=== PATIENT | female | born 1980 | race Caucasian/White ===

== ENCOUNTER → 2021-08-06 13:07 | Outpatient (CLI) | payer OTHER, SELFPAY ==
[2021-08-06 15:51] LABS: COVID19 -Nasal RAPID Negative (Negative)
== END ==
PROVIDERS: Visit Provider Nurse Practitioner Family
DX: Z20.822 Contact with and (suspected) exposure to COVID-19 (principal)
CPT/HCPCS: 87635

== ENCOUNTER 2021-08-08 11:41 | Day surgery (SDC) | payer OTHER, SELFPAY ==
[2021-08-01 12:49] VITALS: BMI 51.7
[2021-08-08] VITALS (14 sets, daily range): BP systolic 98–167; BP diastolic 59–98; PULSE 97–118; RESP 10–101; TEMP 36.1–37; O2SAT 93–99; BMI 51.7
--- NOTE | 2021-08-08 | DI.RAD.S_ITS ---
PROCEDURE: XR LUMBAR SPINE 2-3V INDICATIONS: L4-5 TLIF TECHNIQUE: 2 intraoperative fluoroscopic views of the lumbar spine were acquired. COMPARISON: None. FINDINGS: Intraoperative fluoroscopic images of lower lumbar spine shows transpedicular fusion at L4-5 level with intervertebral spacer placement. IMPRESSION: Fluoro guidance was provided intraoperatively for posterior fusion at L4-5 level. Dictated by: Aston Espinal M.D. on 08/08/2021 at 16:53 Approved by: Aston Espinal M.D. on 08/08/2021 at 16:53
[2021-08-08] MEDS: LACTATED RINGERS 1,000 ML 42 ML IV ×2 (12:38→14:40)
--- NOTE | 2021-08-08 13:12 | PM.PREOP ---
Pre-operative Note COVID-19 COVID-19 status: Negative Result date/Date tested (Pos, Neg/Pending): 08/06/21 Interval Note History & Physical reviewed/Exam performed by Physician: Yes Changes to H&P: No
[2021-08-08] MEDS: CEFAZOLIN VIAL 3 GM in SODIUM CHLORIDE 0.9% 100 ML 200 ML IV (13:58)
--- NOTE | 2021-08-08 14:49 | SUR.OPER ---
Prone on spine table, head in foam head support and on top of 6-8 of stacked towels because of patient's large body habitus preventing head from reaching cradle at normal level, padded chest-this ended up being removed from under patient because it was elevating her too high. Padded pelvic supports, gel pad at knees, lower legs supported by pillows; nipples, genitalia and toes free of pressure as much as possible given her body habitus, arms secured on foam padded arm boards at <90 degrees abduction. Tape over blanket at thigh secured to table.
--- NOTE | 2021-08-08 14:59 | SUR.OPER ---
Approximately 30 extra minutes were taken in positioning patient due to large body habitus.
[2021-08-08] MEDS: BUPIVACAINE LIPOSOME 266 MG/20 ML VIAL INJ (15:06)
[2021-08-08] MEDS: BUPIVACAINE 0.25% (PF) VIAL 30 ML INJ (15:08)
--- NOTE | 2021-08-08 17:07 | P.OP_ITS ---
Operative Date/Time/Diagnoses Date of procedure: 08/08/21 Time of procedure: 14:00 Pre-op diagnosis: 1. L4-5 spondylolisthesis 2. L4-5 spinal stenosis with radiculopathy Post-op diagnosis: same Procedure & Clinicians Procedure: 1. L4-5 Postero-lateral and posterior interbody fusion 2. L4-5 interbody cage placement. 3. L4-5 decompressive laminectomy with bilateral facetecomies 4. L4-5 Posterior non-segmental instrumentation 5. [place] of bone marrow from iliac crest 6. Utilization of microsurgical technique and operating microscope Same procedure as scheduled: Yes Indications: Patient has been having chronic back pain and worsening lumbar radiculopathy. Patient failed multiple conservative management with worsening pain weakness and numbness in her lower extremity. Patient has been having difficulty performing activity of daily living. After discussing risks benefits of treatment options, patient elected proceed with surgery. Surgeon: Ale Uribe Environmental Field Professional: Purvi Cooper Click Yes if Unassisted: No Anesthesia Type: General Operative Notes Closure Type: primary Specimen(s): none sent Prosthetic devices, grafts, tissues, transplants, or devices: Globus revolve screws, Rise cage Estimated Blood Loss (mL): 50 Blood products transfused: none Procedure in detail: Patient was seen in the preoperative area. Risks and benefits of the surgery was discussed with the patient. Informed consent was obtained from the patient and placed in the chart. Surgical site was marked. Patient was taken to the operative room. General anesthesia was administered. Prophylactic antibiotic was given to the patient less than 30 min before the incision was made. Patient was placed into a prone position on the Joshua table. Patient's back was then prepped and draped in the sterile fashion. Time- out was performed at this time. Using AP and lateral C-arm imaging the interval between L4-5 was identified and marked on patient's back. Patient has transitional anatomy. In order to keep naming and level of the surgery consistent the level with the clear spondylolisthesis was named L4-5 in order to keep the naming consistent with radiology report. A 2 inch incision 2 in from midline was made on the right side first. The fascia was incised in line with skin incision. Globus MARS retractors was placed inside the incision and docked onto the L4 lamina. Using microsurgical technique and operating microscope, a at L4 laminectomy and L4-5 facetectomy was performed using a Kerrison rongeur. The disc space at L4-5 was identified. And a total diskectomy was performed at L4-5 level. The endplates were decorticated using a rasp and shaver. The total diskectomy and decortication was performed at L4-5 level in order to to accomplish a L4-5 fusion. The local bone from the laminectomy and facetectomy was saved for local bone grafting. After the total diskectomy and decortication was completed, Trifecta bone graft material was combined with local bone that was harvested earlier. At this time, a separate skin is incision was made over the iliac crest. A Jamshidi needle was inserted into the iliac crest through a separate skin incision. 5 cc of bone marrow aspiration was obtained through the separate skin incision using a Jamshidi needle from the iliac crest. The bone marrow aspiration was combined with local bone and the Trifecta bone grafting material. The bone grafting material was placed into the L4-5 interbody space along with a expandable cage. The cage was expanded to its maximum height using the torque limiting screwdriver. At this time a mirror image incision was made on the left side. The fascia was incised in line with the skin incision. Globus MARS retractor was inserted and docked onto the L4-5 posterolateral gutter. Using the power drill, posterior- lateral decortication was performed at L4-5 level until bleeding cortical bone was identified. The remaining bone grafting material was placed into the L4-5 posterior lateral gutter he order to accomplish posterolateral fusion at the L4- 5 level. Using the double C-arm technique, pedicle screws were placed into the L4-5 pedicles bilaterally. This was done by placing the Jamshidi needle into the pedicles, then placing the guidewires over the Jamshidi needle, and finally placing the cannulated screws over the guidewires bilaterally. After the pedicle screws were placed, 2 titanium rods was locked into the heads of the pedicle screws using locking caps and torque limiting screwdriver. Thread reducers was used to reduce the patient's spondylolisthesis and maintaining the reduction which was successfully accomplished. After all the hardware was placed, and confirmed with AP and lateral C-arm imaging, the wound was then irrigated with sterile normal saline and packed with Ray-Kasandra gauze for 3 min to accomplish hemostasis. After the gauze was removed the deep fascia was closed with #1 Vicryl suture. The subcutaneous layer was closed with 2-0 Vicryl. The skin was closed with skin altagracia. Patient tolerated the procedure well. There were no complications. Complications: none Post-operative Condition: stable Disposition: PACU Plan for aftercare: Admit to inpatient hospital
[2021-08-08] MEDS: LORazepam 2 MG/ML INJ 0.5 MG IV (17:10)
[2021-08-08] MEDS: hydrOXYzine 50 MG/ML INJ IM (17:36)
[2021-08-08] MEDS: OXYCODONE IR 5 MG TABLET 10 MG PO (17:38)
--- NOTE | 2021-08-08 17:53 | SUR.PHASEI ---
Addendum entered by Mis Garcia R.N. 08/08/21 18:41: 1820 - Patient appears much more comfortable at rest; intermittantly resting with eyes closed, and even, unlabored breathing. Wakes up periodically and complains of pain, but easily falls back asleep. Report given to receiving Acute Care RN Dona. Patient transferred to room 223 in bed with all belongings in stable condition. Receiving RN at bedside to receive patient. Original Note: Patient arrived to PACU thrashing in bed and ripping everything off of her. Kept attempting to get up and hit at staff. Dr. Reeves at bedside as well as multiple other staff members. Received verbal order for ativan which was given immediately. Patient continued to thrash around in bed and refuse care almost losing IV site. Dr. Reeves administered propofol and versed in PACU (see anesthesia record) and patient placed on nonrebreather. Patient calmed and later awakened a bit calmer. Continued to have moments of yelling and thrashing, but became more easily directable. Patient medicated per orders and falls asleep periodically. Appears to be more comfortable than previously and is maintaining oxygen saturation on room air.
[2021-08-08] MEDS: SODIUM CHLORIDE 0.9% 1,000 ML 100 ML IV (18:45)
[2021-08-08] MEDS: HYDROMORPHONE 0.5 MG INJ IV ×2 (18:51→20:51)
[2021-08-08] MEDS: CEFAZOLIN 1 GM VIAL 2 GM IV (19:43)
[2021-08-08] MEDS: diazePAM 5 MG TABLET PO (19:44)
[2021-08-08] MEDS: HYDROCODONE/ACET 10/325 TABLET 1 TAB PO (19:44)
[2021-08-08] MEDS: lisinopriL 10 MG TABLET PO (21:30)
[2021-08-08] MEDS: DOCUSATE 100 MG CAPSULE PO (21:30)
[2021-08-08] MEDS: OXYCODONE ER 10 MG TAB PO (21:30)
[2021-08-08] MEDS: SENNOSIDES 8.6 MG TABLET 17.2 MG PO (21:30)
[2021-08-08] MEDS: TIZANIDINE 4 MG TABLET 8 MG PO (21:31)
--- NOTE | 2021-08-08 22:51 | PC.NURSE ---
pt arrived in room anxious, moaning, screaming, moving around in bed. she said oxycodone does not work for her. notified provider. VTO for norco and valium. provider would like to keep the oxycontin, dc oxycodone. amlodipine dc'd pt does not take it anymore. resume BP meds per provider, gave lisinopril as she takes it at night.
[2021-08-09] VITALS: BP 107/55; PULSE 99; RESP 21; TEMP 36.1; O2SAT 93
[2021-08-09] MEDS: HYDROCODONE/ACET 10/325 TABLET 1 TAB PO ×4 (00:19→10:51)
[2021-08-09] MEDS: hydrOXYzine pamoate 25 MG CAPSULE PO ×2 (00:20→06:09)
[2021-08-09] MEDS: HYDROMORPHONE 0.5 MG INJ IV ×3 (01:29→06:21)
[2021-08-09] MEDS: CEFAZOLIN 1 GM VIAL 2 GM IV (03:29)
[2021-08-09 04:00] VITALS: BP 130/53; PULSE 102; RESP 20; TEMP 36.6; O2SAT 98
[2021-08-09] MEDS: HYDROMORPHONE 2 MG TABLET PO ×3 (07:25→12:38)
[2021-08-09 07:40] VITALS: BP 107/67; PULSE 109; RESP 24; TEMP 35.9; O2SAT 99
--- NOTE | 2021-08-09 09:05 | PT.IIE ---
Current Diagnoses Spondylolisthesis, lumbar region (08/08/21) Spinal stenosis, lumbar region without neurogenic claudication (08/08/21) Surgery Performed Operation Date: 08/08/21 13:15 Actual Procedures p L4-5 TLIF - Ale Uribe MD Medical History (Last Reviewed 08/09/21 @ 10:52 by Purvi Cooper PA-C) Anxiety Arthritis Gluten intolerance Heartburn HTN (hypertension) Hypothyroid Migraines Sciatica Physical Therapy Inpatient Evaluation/Re-Eval M1 PT/OT-IP Prior Functional Status Start: 08/09/21 11:47 Freq: NEEDED Status: Active Protocol: Document 08/09/21 09:05 AB (Rec: 08/09/21 12:00 AB [email or web address]) Medical Review Prior Functional Status Medical History Reviewed Yes Communication able to make needs known Mobility and Gait pt stated that she is independent with all mobilities and ambulation wtihout AD Social History Household Members spouse,children Living Arrangements House Number of Floors (Floors) Two Floors Number of Stairs To Enter/Railing? 1 step to enter to bedroom level: 7+landing+7 steps R rail ascending Home Environment Standard Height Toilet,Tub/ Shower Home Equipment Hand Held Shower,Grab Bars Near Toilet,Grab Bars In Shower M2 PT-IP Current Condition Start: 08/09/21 11:47 Freq: NEEDED Status: Active Protocol: Document 08/09/21 09:05 AB (Rec: 08/09/21 12:00 AB [email or web address]) Physical Therapy Current Condition Current Condition Evaluation Date 08/09/21 Treatment Diagnosis s/p L4-5 fusion/lami; difficulty in walking Onset Date 08/08/21 Precautions Lumbar Precautions Log Roll,No Twisting,Limit Bending,Lifting Restriction of 10 lbs,Gait Belt above Incisional Area M3 PT-IP Subjective Start: 08/09/21 11:47 Freq: NEEDED Status: Active Protocol: Document 08/09/21 09:05 AB (Rec: 08/09/21 12:00 AB [email or web address]) Subjective Physical Therapy Visit Type Type Initial Evaluation Visit Start Time 09:05 Visit Stop Time 09:40 Total Visit Minutes 35 Number of MEDICAL ASSISTING INSTRUCTOR Visits 0 Physical Therapy Visit Comments Patient Comments requested to use the toilet, put her clothes on; pt is very anxious Therapy Pain Assessment Pain When Pain Assessed At Rest Pain Present Pain Present Pain Reported Location back Intensity 10 Scale Used Numeric (0 - 10) Pain Behaviors Calling Out,Facial Grimacing, Guarding,Holding Area,Moaning, Restlessness,Wincing Pain Management Techniques Distraction,Modification of Treatment,Re-positioning, Timing of Activity with Medications M4 PT-IP Mobility and Gait Start: 08/09/21 11:47 Freq: NEEDED Status: Active Protocol: Document 08/09/21 09:05 AB (Rec: 08/09/21 12:00 AB [id number]) PT-Bed Mobility Assessment Supine to Sit Supine to Sit Moderate Assistance,Maximum Assistance,1 Person Assistance PT-Transfer Assessment Sit to and From Stand Sit to and from Stand Moderate Assistance,Maximum Assistance,1 Person Assistance ,Use of Upper Extremities Equipment Transfer Assistive Device Gait Belt,Front Wheeled Walker Orthotic/Prosthetic Devices or Brace: No Transfers Transfer Destination Toilet Transfer Technique ambulated using FWW Transfer Ability Level of Assist Moderate Assistance,1 Person Assistance,Use of Upper Extremities Comments Mobility Comments educated pt on back precautions and log roll bed mobility. pt is very anxious and needs reassurance. completed log roll supine to sit max A and max cues. pt was able to sit on EOB SBA. completed sit to stand mod to max A and max cues and ambulated ~ 10 ft to the toilet using FWW mod A and cues. pt ambulated from the toilet to the chair using FWW mod A. Assisted pt with dressing. completed sit to stand mod to max A and cues and assisted with brief/pants management. required min to mod A for standing balance using FWW. positioned pt on chair. Spouse came in towards end of PT session. pt wants to eat breakfast. pt stated that she wants to go home. informed regarding PT afternoon session and if needed caregiver training with be conducted. pt and spouse agreed. pt also does not have a FWW to use at home. informed pt that she will need a bariatric walker. pt requested PT to dispense walker to her from [facility]. informed porter sample case for bariatric FWW order. call light and table placed within reach. Gait Assessment Gait Gait Assistance Required: Moderate Assistance,1 Person Assist Distance (Feet) 10 Able to Maintain Weight Bearing Status Yes During Gait Assistive Devices Assistive Device Gait Belt,Front Wheeled Walker Orthotic/Prosthetic Devices or Brace: No Gait Deviations General Gait Pattern Antalgic,Decreased Stride Length,Decreased Feet Clearance Factors Limiting Gait Function Factors Limiting Gait Function Decreased Activity Tolerance, Decreased Strength,Limited Range of Motion,Pain,Poor Balance,Poor Safety Awareness PT-Balance Assessment Sitting Balance and Reactions Static Sitting Balance Ability Good Dynamic Sitting Balance Ability Good Standing Balance and Reactions Static Standing Balance Ability Fair Dynamic Standing Balance Ability Fair Device Used FWW M5 PT-IP Objective Assessments Start: 08/09/21 11:47 Freq: NEEDED Status: Active Protocol: Document 08/09/21 09:05 AB (Rec: 08/09/21 12:00 [email or web address]) Orientation Orientation/Cognition Level of Alertness Alert Orientation Name,Age,Birthday,Month,Date, Year,Day of Week,Place, Situation Language Function Ability No Deficits Noted Safety Awareness Decreased Safety Awareness Memory Description No Deficits Noted Gross Range of Motion Upper Extremity ROM Assessment Within Functional Limits Strength Lower Extremity Strength Assessment Within Functional Limits Coordination Assessment Gross Coordination Gross Coordination WNL Sensation Assessment Sensation Gross Sensation WNL Muscle Tone Muscle Tone WNL Yes M6 PT-IP Treatment Start: 08/09/21 11:47 Freq: NEEDED Status: Active Protocol: Document 08/09/21 09:05 AB (Rec: 08/09/21 12:00 [email or web address]) Physical Therapy Treatment Education Education Provided Precautions,Weight Bearing Status,Post-Op Packet,Safety M7 PT-IP Assessment and Plan Start: 08/09/21 11:47 Freq: NEEDED Status: Active Protocol: Document 08/09/21 09:05 AB (Rec: 08/09/21 12[facility] PT Summary Assessment and Plan Potential Rehabilitation Potential Fair Status of Condition at Evaluation Evolving Summary Impairments Pain,ROM,Strength,Balance, Coordination,Sensation,Tone, Cognition,Bed Mobility, Transfers,Gait,Activity Tolerance Assessment Summary pt requiring mod to max A for transfers and ambulation using FWW. pt with c/o increase back pain and is very anxious affecting mobility level. Caregiver training will be conducted when appropriate as well as stair climbing training. will continue to assess progress. Goals Bed Mobility Goal Standby Assistance Transfer Goal Standby Assistance,Front Wheeled Walker Gait Goal Standby Assistance,Front Wheel Walker Gait Distance 150 Other Goals up/down 1 step using FWW SBA up/down 15 steps R rail SBA Days to Meet Goals 5 Frequency of Treatment Frequency Of Treatment Twice a Day Treatment Plan Physical Therapy Treatment Plan Bed Mobility Training,Transfer Training,Gait Training, Therapeutic Exercise,Balance Retraining,Post Op Education, Discharge Planning,Hot or Cold Pack,Neuromuscular Re-ed, Coordination Retraining,Manual Therapy Other Recommendations and Next Treatment caregiver training, stair Focus climbing Precautions Lumbar Precautions Log Roll,No Twisting,Limit Bending,Lifting Restriction of 10 lbs,Gait Belt above Incisional Area Recommendations To Nursing Amount of Assist Needed 1 Person Assist Discharge Recommendations PT Discharge Recommendations Home with 24/ Assist Available Equipment Needed for Home Before FWW: bariatric Discharge Transportation Needs at Discharge Private Vehicle
[2021-08-09] MEDS: DOCUSATE 100 MG CAPSULE PO (09:25)
[2021-08-09] MEDS: FERROUS SULFATE 325 MG TABLET PO (09:25)
[2021-08-09] MEDS: MELOXICAM 7.5 MG TABLET 15 MG PO (09:26)
[2021-08-09] MEDS: LEVOTHYROXINE 100 MCG TABLET PO (09:26)
--- NOTE | 2021-08-09 10:49 | PM.DS.1 ---
History of Present Illness History of Present Illness Date Patient Seen: 08/09/21 Time Patient Seen: 10:50 Chief complaint: Low back pain status lumbar fusion Narrative: The patient is complaining of 8.5/10 low back pain this morning. She notes her baseline is usually a 6 or more, and sees pain management regularly. She typically takes Bush 10s at home as well as meloxicam. Overall, she is feeling well and would like to be discharged home today if she is cleared by PT. Discharge Providers Provider Discharge Date: 08/09/21 Consults: 08/08/21 18:25 Consult to Occupational Therapy Evaluate & Treat Comment: Physician Instructions: Evaluate and treat Consult to Physical Therapy Evaluate & Treat Comment: Physician Instructions: Evaluate and Treat Discharge provider: Purvi Cooper PA-C Summary Hospital Course Discharge Diagnosis: 1. L4-5 spondylolisthesis 2. L4-5 spinal stenosis with radiculopathy 3. Chronic pain management patient Hospital Course: Procedure: 1. L4-5 Postero-lateral and posterior interbody fusion 2. L4-5 interbody cage placement. 3. L4-5 decompressive laminectomy with bilateral facetecomies 4. L4-5 Posterior non-segmental instrumentation 5. [place] of bone marrow from iliac crest 6. Utilization of microsurgical technique and operating microscope Same procedure as scheduled: Yes Indications: Patient has been having chronic back pain and worsening lumbar radiculopathy. Patient failed multiple conservative management with worsening pain weakness and numbness in her lower extremity.? Patient has been having difficulty performing activity of daily living.? After discussing risks benefits of treatment options, patient elected proceed with surgery. Surgeon: Ale Uribe Fringe Knotter: Purvi Cooper Click Yes if Unassisted: No Anesthesia Type: General Operative Notes Closure Type: primary Specimen(s): none sent Prosthetic devices, grafts, tissues, transplants, or devices: Globus revolve screws, Rise cage Estimated Blood Loss (mL): 50 Blood products transfused: none Status at Discharge Cognitive/behavioral status at discharge: oriented Functional status at discharge: uses cane/walker Overall status at discharge: patient is progressing back to baseline Exam Vital Signs (past 8 hours): - 08/09/21 04:00 08/09/21 07:40 Temperature 97.9 F 96.6 F L Pulse Rate 102 H 109 H Respiratory Rate 20 24 Blood Pressure 130/53 L 107/67 Pulse Oximetry 98 99 Oxygen Delivery Method Room Air Oxygen Flow Rate 0 Narrative Exam Narrative: Pleasant 41-year-old female, resting comfortably in her chair, no acute distress. is at bedside. Dressing is clean, dry, intact. Bilateral lower extremity motor function is intact. Sensation is grossly intact to light touch in bilateral lower extremities. Bilateral calves are soft, nontender to palpation. [facility] Medical History Anxiety Arthritis Gluten intolerance Heartburn HTN (hypertension) Hypothyroid Migraines Sciatica Surgical History No history of previous surgery Social History household members: spouse and children Smoking Status: Former smoker alcohol intake: former Discharge Assessment & Plan Assessment and Plan Assessment: Stable status post lumbar fusion Plan of Treatment: The Patient and I had a long discussion today about her pain management. She is scheduled to see her normal pain management physician on 08/20/2021. We dissected discussed the risks and benefits of increasing her narcotics and agreed on adding long-acting oxy as well as Vistaril and oral Dilaudid. -mobilize with PT -limit bending, lifting, twisting -weight bearing as tolerated with front wheel walker -DC home today after cleared by PT Discharge Plan Discharge Plan Patient Disposition: Home Discharge orders & Medications Discharge Orders: Discharge (Order); Ordered 08/09/21 Ordered By: Purvi Cooper Prescriptions: New acetaminophen 500 mg capsule 500 mg PO Q4H MDD Max 3000 mg per day PRN (Reason: Pain, Mild (1-3)) Qty: 90 RF: 0 docusate sodium 100 mg Capsule 100 mg PO BID PRN (Reason: constipation) Qty: 30 RF: 0 hydromorphone 2 mg Tablet 2 mg PO Q2H PRN (Reason: Pain, Severe (7-10)) Qty: 60 RF: 0 hydroxyzine pamoate 25 mg Capsule 25 mg PO Q4HR PRN (Reason: Spasms/agitation/nausea) Qty: 60 RF: 0 oxycodone [OxyContin] 10 mg Tablet,Oral Only,Ext.Rel.12 Hr 10 mg PO BID PRN (Reason: Moderate to severe pain) Qty: 21 RF: 0 Continued tizanidine 4 mg Tablet 8 mg PO BEDTIME RF: 0 meloxicam 15 mg Tablet 15 mg PO DAILY RF: 0 amlodipine 5 mg Tablet 5 mg PO BEDTIME RF: 0 hydrocodone-acetaminophen 10-325 mg Tablet 1 tab PO 5XD RF: 0 levothyroxine 100 mcg Tablet 100 mcg PO DAILY RF: 0 ferrous sulfate [iron] 325 mg (65 mg iron) Tablet 325 mg PO DAILY RF: 0 lisinopril 10 mg Tablet 10 mg PO DAILY RF: 0 Follow up/Referrals: Ale Uribe MD [Physician] - (10- 14 days for postoperative visit) Diet/Activity/Treatments Diet: Diet as Tolerated and Regular Activity: -limit bending, lifting, twisting -weight bearing as tolerated with front wheel walker -continue with home exercises per physical therapy Cold/Heat Therapy: -use ice as needed for pain Skin/Wound/Dressing Care Report to your healthcare provider any signs of infection, such as:: chills, fever, night sweats, unusual drainage and unusual redness Dressing: Okay to shower 48 hours after surgery -change bandage if it becomes wet, soiled, saturated Visit Report/Discharge Packet Instructions: DI for Transforaminal Lumbar Interbody Fusion Stand Alone Forms: Surgery Discharge Discharge Data Attending Provider: Ale Uribe
--- NOTE | 2021-08-09 11:19 | PC.NURSE ---
Addendum entered by India Johns R.N. 08/09/21 13:07: Home via private vehicle accompanied by spouse Garth. Original Note: Discharge note: Discharge instructions given to patient, discussed importance of F/U with PMD, s/sx of infections, dressing care, new medications and mobility precautions. Patient verbalized understanding of discharge instructions. Surgical dressing to lower back changed due to rolling off skin, however not active bleeding or unusual drainage.
--- NOTE | 2021-08-09 12:18 | OT.IP.EVAL ---
Current Diagnoses Spondylolisthesis, lumbar region (08/08/21) Spinal stenosis, lumbar region without neurogenic claudication (08/08/21) Surgery Performed Operation Date: 08/08/21 13:15 Actual Procedures p L4-5 TLIF - Ale Uribe MD Past Medical History (Last Reviewed 08/09/21 @ 10:52 by Purvi Cooper PA-C) Anxiety Arthritis Gluten intolerance Heartburn HTN (hypertension) Hypothyroid Migraines No history of previous surgery Sciatica Surgical History (Last Reviewed 08/09/21 @ 10:52 by Purvi Cooper PA-C) No history of previous surgery Occupational Therapy Inpatient Evaluation/Re-Eval M1 PT/OT-IP Prior Functional Status Start: 08/09/21 11:47 Freq: NEEDED Status: Active Protocol: Document 08/09/21 12:18 [facility] (Rec: 08/09/21 12:43 [facility] [id number]) Medical Review Prior Functional Status Medical History Reviewed Yes Communication able to make needs known Mobility and Gait pt stated that she is independent with all mobilities and ambulation without AD Activities of Daily Living and IADL's Pt states due to her pain was having difficulty with ADl and IADl needs. Social History Household Members spouse,children Living Arrangements House Number of Floors (Floors) Two Floors Number of Stairs To Enter/Railing? 1 step to enter to bedroom level: 7+landing+7 steps R rail ascending Home Environment Standard Height Toilet,Tub/ Shower Home Equipment Hand Held Shower,Grab Bars Near Toilet,Grab Bars In Shower Additional Social History Comment Pt has ordered a tub bench. M2 OT-IP Current Condition Start: 08/09/21 12:29 Freq: Status: Active Protocol: Document 08/09/21 12:18 [facility] (Rec: 08/09/21 12:43 [facility] [id number]) Occupational Therapy Current Condition Current Condition Evaluation Date 08/09/21 Treatment Diagnosis s/p L4-5 TLIF Diagnosis Onset Date 08/08/21 Post Operative Precautions Lumbar Precautions Log Roll,No Twisting,Limit Bending,Lifting Restriction of 10 lbs,Gait Belt above Incisional Area M3 OT- IP Subjective and Pain Start: 08/09/21 12:29 Freq: Status: Active Protocol: Document 08/09/21 12:18 [facility] (Rec: 08/09/21 12:43 [facility] [id number]) OT- Subjective Occupational Therapy Visit Type Type Initial Evaluation Visit Start Time 08:03 Visit Stop Time 08:45 Total Visit Minutes 42 Occupational Therapy Visit Comments Patient Comments Pt agreed to get up for OT eval and pt's present for the session. Patient/Caregiver Goals TO go home. OT Pain Assessment Pain When Pain Assessed During Mobility Pain Present Pain Present Pain Reported Location back Intensity 3 Scale Used Numeric (0 - 10) M4 OT- IP ADL's Start: 08/09/21 12:29 Freq: Status: Active Protocol: Document 08/09/21 12:18 [facility] (Rec: 08/09/21 12:43 [facility] [id number]) OT [id number]-[id number] Comments OT Self-Feeding Comments No issues noted. OT ADL-Grooming General Evaluation Grooming Ability Independent Comments OT Grooming Comments Able to do while standing at the sink. OT ADL-Oral Care General Eval Oral Care Ability Independent Comments Oral Care Comments Educated to spit in to a cup to best follow her back precautions. OT ADL-Dressing Comments OT Dressing Comments ABle to show pt LB dressing equipment and states has a letterer and that her kids or will assist with her socks. OT ADL-Toileting Comments OT Toileting Comments Went over strategies to best follow her back precautions while wiping. In addition educated her of possible use of toilet paper aid if needed. OT ADL-Bathing Comments OT Bathing Comments Pt states to shower at home. Pt has order a tub transfer bench. M5 OT- IP IADL's Start: 08/09/21 12:29 Freq: Status: Active Protocol: Document 08/09/21 12:18 [facility] (Rec: 08/09/21 12:43 [facility] [id number]) OT-Instrumental Activities of Daily Living Home Safety Awareness Awareness of Need for Assistance at Home Good Awareness Ability to Problem Solve Emergency Able to Problem Solve Situations Medication Management Medication Management No Deficits Identified Money Management Money Management No Deficits Identified Meal Preparation Meal Preparation Caregiver Provides Assist Pretzel Cooker Pretzel Cooker Caregiver Provides Assist M6 OT- IP Functional Cognition Start: 08/09/21 12:29 Freq: Status: Active Protocol: Document 08/09/21 12:18 [facility] (Rec: 08/09/21 12:43 [facility] [id number]) Cognitive Factors Limiting Selfcare Function Cognitive Ability Level of Alertness Alert Patient Orientation Name,Age,Birthday,Month,Date, Year,Day of Week,Place, Situation Attention Span Ability Capable of Focused Attention, Capable of Sustained Attention Ability to Follow Commands Able to Follow Multi-Step Commands Memory Description No Deficits Noted Safety Awareness Underestimates Need for Assistance Cognitive Comments Cognitive Assessment Comments Pt intact for cognitive needs and able to follow back precautions with good safety. OT- Vision and Hearing OT- Hearing Assessment OT- Hearing Assessment WFL M7 OT- IP Mobility and Balance Start: 08/09/21 12:29 Freq: Status: Active Protocol: Document 08/09/21 12:18 [facility] (Rec: 08/09/21 12:43 [facility] [id number]) OT-Transfer Assessment Sit to and From Stand Sit to and from Stand Contact Guard Assistance Transfers Transfer Ability Contact Guard Assistance Technique Transfer Destination Chair Transfer Technique Stand Step Pivot Devices Transfer Assistive Devices Gait Belt,Front Wheeled Walker Comments Mobility Comments CGA to stand from recliner and educated pt's how to viktor/doff the gait belt and how to hold onto the gait belt if his needing assist, especially when standing from lower surfaces. CGA with FWW. OT- Gait Assessment Comments Gait Ability Comments CGA with FWW. OT- Balance Assessment Sitting Balance and Reactions Static Sitting Balance Ability Normal Dynamic Sitting Balance Ability Good Standing Balance and Reactions Static Standing Balance Ability Fair M8 OT- IP Objective Assessments Start: 08/09/21 12:29 Freq: Status: Active Protocol: Document 08/09/21 12:18 [facility] (Rec: 08/09/21 12:43 [facility] [id number]) OT-Muscle Tone Assessment Muscle Tone WNL Yes M9 OT- IP Assessment and Plan Start: 08/09/21 12:29 Freq: Status: Active Protocol: Document 08/09/21 12:18 [facility] (Rec: 08/09/21 12:43 [facility] [id number]) OT Summary Assessment and Plan Potential Rehabilitation Potential Good Analytic Complexity at Evaluation Low Summary OT Impairments Pain,Functional Mobility, Dressing,Toileting,Bathing, Shower Transfers Progress Towards Goals Progressing Toward Goals Assessment Summary Pt low complexity and main barriers are steps, pain, and now needing assist for dressing, toileting, and bathing. Pt has a supportive family at home to assist pt for all her needs. Goals Grooming Goal Independent Dressing Goal Independent Toileting Goal Minimal Assistance Bathing Goal Standby Assistance Toilet Transfer Goal Independent Shower Transfer Goal Independent Days to Meet Goals 3 Frequency of Treatment Frequency Of Treatment Once a Day Treatment Plan OT Treatment Plan ADL Training,Functional Mobility,Patient/Family Education,Discharge Planning Other Treatment Recommendations and Next shower if still here Treatment Focus Discharge Recommendations OT Discharge Recommendations Home with Assistance Home Equipment Needs bariatric FWW, tub bench Transportation Needs at Discharge Private Vehicle
--- NOTE | 2021-08-09 12:30 | PT.IPTN ---
Current Diagnoses Spondylolisthesis, lumbar region (08/08/21) Spinal stenosis, lumbar region without neurogenic claudication (08/08/21) Surgery Performed Operation Date: 08/08/21 13:15 Actual Procedures p L4-5 TLIF - Ale Uribe MD Physical Therapy Treatment Note M2 PT-IP Current Condition Start: 08/09/21 11:47 Freq: NEEDED Status: Discharge Protocol: Document 08/09/21 09:05 [facility] (Rec: 08/09/21 12:00 AB [email or web address]) Physical Therapy Current Condition Current Condition Evaluation Date 08/09/21 Treatment Diagnosis s/p L4-5 fusion/lami; difficulty in walking Onset Date 08/08/21 Precautions Lumbar Precautions Log Roll,No Twisting,Limit Bending,Lifting Restriction of 10 lbs,Gait Belt above Incisional Area M3 PT-IP Subjective Start: 08/09/21 11:47 Freq: NEEDED Status: Discharge Protocol: Document 08/09/21 12:30 [facility] (Rec: 08/09/21 13:32 [facility] [email or web address]) Subjective Physical Therapy Visit Type Type Treatment Note Visit Start Time 12:30 Visit Stop Time 13:05 Total Visit Minutes 35 Number of [employer] SALES Visits 0 Physical Therapy Visit Comments Patient Comments agreed to do PT; pt wants to go home Therapy Pain Assessment Pain When Pain Assessed At Rest Pain Present Pain Present Pain Reported Location back Intensity 8 Pain Management Techniques Distraction,Re-positioning, Timing of Activity with Medications M4 PT-IP Mobility and Gait Start: 08/09/21 11:47 Freq: NEEDED Status: Discharge Protocol: Document 08/09/21 12:30 [facility] (Rec: 08/09/21 13:32 AB [id number]) PT-Bed Mobility Assessment Rolling Type of Rolling Log Rolling Level of Assist Moderate Assistance Supine to Sit Supine to Sit Moderate Assistance Sit to Supine Sit to Supine Moderate Assistance PT-Transfer Assessment Sit to and From Stand Sit to and from Stand Minimal Assistance,1 Person Assistance,Use of Upper Extremities Equipment Transfer Assistive Device Gait Belt,Front Wheeled Walker Orthotic/Prosthetic Devices or Brace: No Transfers Transfer Destination Bed,Chair Transfer Technique Stand Step Pivot Transfer Ability Level of Assist Contact Guard Assistance,1 Person Assistance,Use of Upper Extremities Comments Mobility Comments pt sitting on chair. spouse in room. dispensed bariatric FWW to pt and papers signed. Caregiver training conducted. educated pt on safety belt management and how to assist pt. spouse was able to put safety belt on and assisted pt with sit to stand, transfers using fWW and ambulation using FWW. pt requiring mod A with bed mobility but spouse was able to assist pt safely. pt ambulated using FWW ~ 125 ft with spouse assisting CGA. stair climbing training: educated pt and spouse on stair climbing. spouse was able to assist pt up/down steps using R rail and slight hold on L rail for balance (pt has L side wall at home)min to mod A. pt assisted back to her room. pt stated that she is ready to go home. informed nurse. Gait Assessment Gait Gait Assistance Required: Contact Guard Assist Distance (Feet) 125 Able to Maintain Weight Bearing Status Yes During Gait Assistive Devices Assistive Device Gait Belt,Front Wheeled Walker Orthotic/Prosthetic Devices or Brace: No Gait Deviations General Gait Pattern Antalgic,Decreased Stride Length,Decreased Feet Clearance,Step-to Gait Factors Limiting Gait Function Factors Limiting Gait Function Decreased Activity Tolerance, Decreased Strength,Limited Range of Motion,Pain,Poor Balance,Poor Safety Awareness Comments Gait Comments pls refer to mobility section for details Stair Climbing Assessment Evaluation Level of Assist On Stairs Minimal Assistance,Moderate Assistance Devices Stair Climbing Assistive Devices Right Railing Technique/Endurance Stair Climbing Direction Ascend and Descend Stair Climbing Technique Step to Step Number of Steps Climbed 3 Stair Climbing Set # Repetitions (reps) 1 Comments Stair Climbing Comments spouse assisted pt stairs. informed pt and spouse to put a chair on landing for safety in case pt needs to sit down to rest. Both agreed. M5 PT-IP Objective Assessments Start: 08/09/21 11:47 Freq: NEEDED Status: Discharge Protocol: Document 08/09/21 09:05 [facility] (Rec: 08/09/21 12:00 [id number]) Orientation Orientation/Cognition Level of Alertness Alert Orientation Name,Age,Birthday,Month,Date, Year,Day of Week,Place, Situation Language Function Ability No Deficits Noted Safety Awareness Decreased Safety Awareness Memory Description No Deficits Noted Gross Range of Motion Upper Extremity ROM Assessment Within Functional Limits Strength Lower Extremity Strength Assessment Within Functional Limits Coordination Assessment Gross Coordination Gross Coordination WNL Sensation Assessment Sensation Gross Sensation WNL Muscle Tone Muscle Tone WNL Yes M6 PT-IP Treatment Start: 08/09/21 11:47 Freq: NEEDED Status: Discharge Protocol: Document 08/09/21 12:30 [facility] (Rec: 08/09/21 13:32 [facility] [id number]) Physical Therapy Treatment Education Education Provided Precautions,Safety Equipment Issued Equipment Type and Company [facility] Assessment and Plan Start: 08/09/21 11:47 Freq: NEEDED Status: Discharge Protocol: Document 08/09/21 12:30 [facility] (Rec: 08/09/21 13:32 [facility] [id number]) PT Summary Assessment and Plan Potential Rehabilitation Potential Good Summary Impairments Pain,ROM,Strength,Balance, Coordination,Sensation,Tone, Cognition,Bed Mobility, Transfers,Gait,Activity Tolerance Progress Towards Goals Progressing Toward Goals Assessment Summary caregiver training conducted and spouse was able to assist pt with bed mobility, transfers, ambulation and stair climbing. pt may go home when stable. Goals Bed Mobility Goal Standby Assistance Transfer Goal Standby Assistance,Front Wheeled Walker Gait Goal Standby Assistance,Front Wheel Walker Gait Distance 150 Other Goals up/down 1 step using FWW SBA up/down 15 steps R rail SBA Days to Meet Goals 5 Frequency of Treatment Frequency Of Treatment Twice a Day Treatment Plan Physical Therapy Treatment Plan Bed Mobility Training,Transfer Training,Gait Training, Therapeutic Exercise,Balance Retraining,Post Op Education, Discharge Planning,Hot or Cold Pack,Neuromuscular Re-ed, Coordination Retraining,Manual Therapy Other Recommendations and Next Treatment caregiver training, stair Focus climbing Precautions Lumbar Precautions Log Roll,No Twisting,Limit Bending,Lifting Restriction of 10 lbs,Gait Belt above Incisional Area Recommendations To Nursing Amount of Assist Needed 1 Person Assist Discharge Recommendations PT Discharge Recommendations Home with 26/05 Assist Available Transportation Needs at Discharge Private Vehicle
--- NOTE | 2021-08-09 13:45 | CM.IDA ---
Initial DCP Assessment Note Pt is a 41 yo female, resident of [place], now POD#1 from spinal surgery w/ Dr Uribe PCP: Sylwia Duke Payer: [employer] Reviewed chart, met w/patient and spouse Garth this morning, introduced role. Patient is eager to return home, is dressed and awaiting clearance from PT. Order for Bariatric FWW placed per request from [employer], PT Patient and spouse deny needs from this [facility], state patient will return home w/assist from spouse and dtrs, all necessary DME in place. Plan: DC home w/family today, outpatient f/u as ordered SHAWN Whitaker Discharge Planning/Care Management CM Discharge Assessment Start: 08/09/21 13:38 Freq: Status: Active Protocol: Document 08/09/21 13:38 [facility] (Rec: 08/09/21 13:45 [facility] [id number]) Discharge Planning Assessment Assigned Graduate Nurse SHAWN Sexton DPOA/Assigned Designee Name Garth Olivia, spouse Contact Information [phone] Advance Directives? No History Provided By Patient Prior Living Arrangements House Household Members spouse,children Type of transportation used prior to Drives own vehicle admit Independent with ADL's Yes Is patient alert and oriented? Yes Comment Chronic pain, sees pain doctor as an outpatient- can limit mobility/endurance Barriers to Discharge No Discharge Plan Home Transportation Arrangement Spouse Referrals Initiated None needed
== END 2021-08-09 13:13 | disposition home or self-care (01) ==
LOC: OR 11:44 → AC 11:44
PROVIDERS: Referring Provider Orthopaedic Surgery Orthopaedic Surgery of the Spine; Visit Provider Orthopaedic Surgery Orthopaedic Surgery of the Spine
PROC: (CPT 22633; principal; 2021-08-08 13:15)
DX: M43.16 Spondylolisthesis, lumbar region (principal); M48.061 Spinal stenosis, lumbar region without neurogenic claudication; M54.16 Radiculopathy, lumbar region; E03.9 Hypothyroidism, unspecified; I10 Essential (primary) hypertension; M16.0 Bilateral primary osteoarthritis of hip; G89.29 Other chronic pain
CPT/HCPCS: 22633; 20939; 22853; 22840; 63047; 72100; 76000; 82962; 97162; 97165; 97530; 97535; C1776; C9290; J0690; J1100; J1170; J2060; J2250; J2405; J2704; J3010; J3410